=== PATIENT | female | born 1975 | race Caucasian/White ===

== ENCOUNTER 2016-07-28 12:44 | Emergency (ER) | payer OTHER ==
[~2016-07-28] VITALS: Ht 170.2 cm; Wt 74.5 kg
[~2016-07-28 12:44] MED LIST: ACYC-1 PO; LORTA5 PO; NAPR550 PO; ST JTAB PO; Z.0.NO CURRENT MEDS
[2016-07-28 12:47] VITALS: BP 140/82; PULSE 104; RESP 20; TEMP 98.5; O2SAT 100
--- NOTE | 2016-07-28 13:12 | PD ---
Physical Exam Date Seen by Provider: Jul 28, 2016 Time Seen by Provider: 13:10 Narrative Pt is a 40 year old female presenting to the ED due to a needle stick at work. Pt was stuck with a TB needle in left second digit. Pt washed area thoroughly prior to ED presentation. VSS. Awaiting bed placement. Data Data Last Documented VS Vital Signs Date Time Temp Pulse Resp B/P Pulse Ox O2 Delivery O2 Flow Rate FiO2 07/28/16 12:47 98.5 104 20 140/82 100 Room Air MDM Supervised Visit with BAL: Yes Angelina Hollis Jul 28, 2016 13:12
--- NOTE | 2016-07-28 13:34 | PD ---
HPI . Needlestick Chief Complaint: Exposure to Blood/Body Fluids Time Seen by Provider: 13:34 Travel History International Travel<30 days: No Contact w/Intl Traveler<30days: No Traveled to known affect area: No History of Present Illness HPI 40-year-old female here with complaints of a needlestick to her left index finger. 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 She immediately washed her hand. She tells me the source patient has known diabetes, but no infectious disease. The provider at that office will be contacting the patient for testing. All documentation has been completed. We have discussed the risk and benefits of postexposure prophylactic medications. Patient has decided to hold off on taking any medications until test results are back. She has no other issues. PFSH Past Medical History Cancer: No Cardiovascular Problems: No Diabetes: No Endocrine: No Genitourinary: No Immune Disorder: No Musculoskeletal: No Neurologic: Yes Psychiatric: No Reproductive: No Respiratory: No (NON SMOKER) Migraines: Yes LMP: 8APR, 2016 Tubal Ligation: Yes Past Surgical History Gynecologic Surgery: Yes (LAP) Tonsillectomy: Yes Social History Alcohol Use: No Tobacco Use: No Substance Use: No Allergies-Medications (Allergen,Severity, Reaction): Coded Allergies: Biaxin (Verified Allergy, Severe, EMESIS, 03/05/15) Codeine (Unverified Adverse Reaction, Intermediate, EMESIS, 11/27/14) Guaifenesin (Unverified Adverse Reaction, Intermediate, EMESIS, 11/27/14) Reported Meds & Prescriptions Reported Meds & Active Scripts Active Aspirin Ec Low Dose (Aspirin) 81 Mg Tab 81 Mg PO DAILY Anaprox Ds (Naproxen Sodium) 550 Mg Tab 550 Mg PO BID Lortab 5/325 Tab (Hydrocodone-Acetaminophen) 1 Tab Tab 1 Tab PO Q6HPRN Zovirax 800 Mg Tab (Acyclovir) 800 Mg Tab 800 Mg PO 5 TIMES A DAY 7 Days Reported No Current Meds (Miscellaneous Medication) Misc Review of Systems General / Constitutional: No: Fever Eyes: No: Visual changes HENT: No: Headaches Cardiovascular: No: Chest Pain or Discomfort Respiratory: No: Shortness of Breath Gastrointestinal: No: Abdominal Pain Genitourinary: No: Dysuria Musculoskeletal: No: Pain Skin: Positive Other (needlestick), No Rash Neurologic: No: Weakness Psychiatric: No: Depression Endocrine: No: Polydipsia Hematologic/Lymphatic: No: Easy Bruising Physical Exam Narrative GENERAL: AAO x 3, no acute distress, Well-nourished, well-developed patient. SKIN: Warm and dry. No visible rashes or bruising. HEAD: Normocephalic and atraumatic. EYES: No scleral icterus. No injection or drainage. ENT: No nasal drainage noted. Mucous membranes pink. Airway patent. NECK: Supple, trachea midline. No JVD. CARDIOVASCULAR: Regular rate and rhythm without murmurs, gallops, or rubs. RESPIRATORY: Breath sounds equal bilaterally. No accessory muscle use. No rhonchi or rales. GASTROINTESTINAL: normal examination. EXTREMITIES: No cyanosis or edema. BACK: Nontender without obvious deformity. No CVA tenderness. PSYCH: AAO x 3, normal affect. Data Data Last Documented VS Vital Signs Date Time Temp Pulse Resp B/P Pulse Ox O2 Delivery O2 Flow Rate FiO2 07/28/16 12:47 98.5 104 20 140/82 100 Room Air MDM Medical Decision Making Medical Screen Exam Complete: Yes Emergency Medical Condition: Yes Medical Record Reviewed: Yes Differential Diagnosis needlestick, less likely cellulitis, Narrative Course 40-year-old female here with complaints of a needlestick to her left index finger. 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 She immediately washed her hand. She tells me the source patient has known diabetes, but no infectious disease. The provider at that office will be contacting the patient for testing. All documentation has been completed. We have discussed the risk and benefits of postexposure prophylactic medications. Patient has decided to hold off on taking any medications until test results are back. She has no other issues. Patient seen and examined. She has completed all appropriate paperwork and blood samples. She has declined postexposure prophylaxis. At this time my recommendation is to hold off as the source patient's status is unknown. Patient will be contacted by [employer] for any further recommendations and testing needs. Patient verbalized understanding of instructions, questions were answered, and thanked me for their care. I advised them if their condition worsens, please return to the nearest emergency room for further care. Diagnosis Primary Impression: Needle exposure Qualified Code: X58.XXXA - Needle exposure, initial encounter Patient Instructions: Postexposure Prophylaxis (ED), General Instructions Additional Instructions: Employee med will contact you with any further recommendations and test results. Please return to emergency department if your symptoms return or worsen. Med/Other Pt SpecificInfo: No Change to Meds Disposition: 01 DISCHARGE HOME Condition: Stable Renate Zee Jul 28, 2016 13:34
[2016-07-30 13:09] LABS: HEPATITIS B SURFACE ANTIBODY 0 mIU/mL
== END 2016-07-28 14:14 | disposition home or self-care (01) ==
LOC: NEPK 12:44
DX: S61.231A Puncture wound without foreign body of left index finger without damage to nail, initial encounter (principal); W46.0XXA Contact with hypodermic needle, initial encounter; Y93.F9 Activity, other caregiving; Y92.531 Health care provider office as the place of occurrence of the external cause; Y99.0 Civilian activity done for income or pay
CPT/HCPCS: 86317; 86703; 86803; 99283